=== PATIENT | female | born 1985 | race Caucasian/White ===

== ENCOUNTER 2019-08-26 17:54 | Emergency (ER) | payer OTHER ==
[~2019-08-26] VITALS: Ht 177.8 cm; Wt 75.9 kg
[~2019-08-26 17:54] MED LIST: ADDERALL 10 MG10 MG PO; CIPRO 250MG TA250 MG PO; FLOMAX0.4 MG PO; LEXAPRO10 MG PO; NORCO 325 MG-51 TAB PO; SPRINTEC 35 MCG1 TAB PO
[2019-08-26] MEDS ORDERED: ALPRAZOLAM0.5 MG PO (18:03)
[2019-08-26] MEDS ORDERED: BACLOFEN5 MG PO (18:03)
[2019-08-26 18:22] LABS: BASO # 0.1 (0.02-0.10); EOS # 0.1 (0.04-0.40); EOS % 1.3 % (1.0-5.0); HEMOGLOBIN 11.8 g/dL (12.5-16.0); LYMPH# 2.2 (1.50-4.00); MEAN CELL VOLUME 88 fl (78-100); MEAN CORPUSCULAR HEMOGLOBIN 27 pg (27-31); MEAN CORPUSCULAR HGB CONC 31 g/dL (33-37); MEAN PLATELET VOLUME 10.5 fl (7.4-10.4); MONO # 0.7 (0.20-0.80); NEU # 5.2 (1.40-6.50); PLATELET COUNT 254 K/mm3 (130-400); RED BLOOD COUNT 4.31 M/mm3 (4.10-5.30); RED CELL DISTRIBUTION WIDTH 13.9 % (11.5-14.5); WHITE BLOOD COUNT 8.4 K/mm3 (4.8-10.8)
[2019-08-26 18:29] LABS: ALBUMIN 3.7 g/dL (3.5-5.0)
[2019-08-26 18:30] LABS: POTASSIUM 3.6 mmol/L (3.5-5.1)
[2019-08-26 18:31] LABS: CALCIUM 9.1 mg/dL (8.3-10.5)
[2019-08-26 18:32] LABS: TOTAL PROTEIN 5.8 g/dL (6.4-8.3)
[2019-08-26 18:34] LABS: TOTAL BILIRUBIN 0.2 mg/dL (0.2-1.2)
[2019-08-26 18:41] LABS: LIPASE 15 U/L (8-78)
[2019-08-26 18:51] LABS: URINE APPEARANCE CLEAR; URINE BILIRUBIN NEGATIVE (NEGATIVE); URINE BLOOD NEGATIVE (NEGATIVE); URINE COLOR YELLOW; URINE GLUCOSE NEGATIVE (NEGATIVE); URINE KETONE NEGATIVE (NEGATIVE); URINE NITRATE NEGATIVE (NEGATIVE); URINE PROTEIN(semi-quant) TRACE mg/dL (NEGATIVE); URINE UROBILINOGEN NORMAL (NORMAL)
[2019-08-26 18:52] LABS: URINE LEUKOCYTE ESTERASE NEGATIVE (NEGATIVE); URINE WBC 0-1 /hpf (0-3)
[2019-08-26] MEDS ORDERED: NORCO 10-325 T1 EACH PO (21:53)
[2019-08-26] MEDS ORDERED: CYCLOBENZAPRINE10 M1 PO (21:53)
[2019-08-26 22:00] VITALS: BP 104/53
== END 2019-08-26 22:00 | disposition home or self-care (01) ==
LOC: ED 17:54
PROVIDERS: Nurse Practitioner
DX: M54.31 Sciatica, right side (principal); Z87.442 Personal history of urinary calculi
CPT/HCPCS: J1885; J2405; J3010; Q9967

== ENCOUNTER → 2019-09-03 | Outpatient (CLI) | payer OTHER ==
[2019-08-26 22:00] VITALS: BP 104/53
[~2019-09-03] MED LIST changes: +ALPRAZOLAM0.5 MG PO; +BACLOFEN5 MG PO; +CYCLOBENZAPRINE10 M1 PO; +NORCO 10-325 T1 EACH PO
== END ==
LOC: RAD 12:39
DX: M41.86 Other forms of scoliosis, lumbar region (principal)

== ENCOUNTER → 2019-12-17 | Outpatient (CLI) | payer OTHER | LOC: RAD 08:30 | DX: M51.36 Other intervertebral disc degeneration, lumbar region (principal); M47.816 Spondylosis without myelopathy or radiculopathy, lumbar region; M47.817 Spondylosis without myelopathy or radiculopathy, lumbosacral region ==

== ENCOUNTER → 2021-06-12 | Outpatient (CLI) | payer OTHER | LOC: LAB 14:28 | DX: U07.1 COVID-19 (principal) ==

== ENCOUNTER → 2022-02-15 | Outpatient (CLI) | payer OTHER ==
[2022-02-15 15:24] LABS: BASO # 0.05 K/mm3 (0.02-0.10); EOS # 0.15 K/mm3 (0.04-0.40); EOS % 2.4 % (1.0-5.0); HEMATOCRIT 38.8 % (37.0-47.0); HEMOGLOBIN 12.2 g/dL (12.5-16.0); LYMPH# 1.92 K/mm3 (1.50-4.00); MEAN CELL VOLUME 92 fl (78-100); MEAN CORPUSCULAR HEMOGLOBIN 29 pg (27-31); MEAN CORPUSCULAR HGB CONC 31 g/dL (33-37); MEAN PLATELET VOLUME 9.4 fl (7.4-10.4); MONO # 0.68 K/mm3 (0.20-0.80); NEU # 3.48 K/mm3 (1.40-6.50); PLATELET COUNT 249 K/mm3 (130-400); RED BLOOD COUNT 4.21 M/mm3 (4.10-5.30); RED CELL DISTRIBUTION WIDTH 13.3 % (11.5-14.5); WHITE BLOOD COUNT 6.3 K/mm3 (4.8-10.8)
[2022-02-15 15:33] LABS: POTASSIUM 4.9 mmol/L (3.5-5.1)
[2022-02-15 15:34] LABS: CALCIUM 9.6 mg/dL (8.3-10.5)
[2022-02-15 15:36] LABS: TOTAL PROTEIN 6.3 g/dL (6.4-8.3)
[2022-02-15 15:37] LABS: TOTAL BILIRUBIN 0.2 mg/dL (0.2-1.2)
== END ==
LOC: LAB 15:10
PROVIDERS: Family Medicine
DX: Z00.00 Encounter for general adult medical examination without abnormal findings (principal); G50.0 Trigeminal neuralgia; L03.90 Cellulitis, unspecified; F41.1 Generalized anxiety disorder; F90.0 Attention-deficit hyperactivity disorder, predominantly inattentive type; E03.9 Hypothyroidism, unspecified; E78.5 Hyperlipidemia, unspecified; Z72.0 Tobacco use; M25.512 Pain in left shoulder; G89.29 Other chronic pain

== ENCOUNTER → 2023-07-26 | Outpatient (CLI) | payer OTHER | LOC: RAD 12:11 | DX: M51.36 Other intervertebral disc degeneration, lumbar region (principal) ==

== ENCOUNTER → 2024-07-31 | Outpatient (CLI) | payer OTHER ==
[2024-07-31 18:45] LABS: BASO # 0.03 K/mm3 (0.02-0.10); EOS # 0.05 K/mm3 (0.04-0.40); HEMATOCRIT 36.4 % (37.0-47.0); HEMOGLOBIN 11.4 g/dL (12.5-16.0); LYMPH# 1.14 K/mm3 (1.50-4.00); MEAN CELL VOLUME 86 fl (78-100); MEAN CORPUSCULAR HEMOGLOBIN 27 pg (27-31); MEAN CORPUSCULAR HGB CONC 31 g/dL (33-37); MEAN PLATELET VOLUME 9.8 fl (7.4-10.4); NEU # 2.92 K/mm3 (1.40-6.50); PLATELET COUNT 258 K/mm3 (130-400); RED BLOOD COUNT 4.25 M/mm3 (4.10-5.30); RED CELL DISTRIBUTION WIDTH 15.5 % (11.5-14.5); WHITE BLOOD COUNT 4.9 K/mm3 (4.8-10.8)
[2024-07-31 18:53] LABS: SODIUM 139 mmol/L (136-145)
[2024-07-31 18:54] LABS: CALCIUM 9.1 mg/dL (8.3-10.5)
[2024-07-31 18:55] LABS: GLUCOSE 68 mg/dL (65-105); TOTAL PROTEIN 6.7 g/dL (6.4-8.3)
[2024-07-31 18:56] LABS: CARBON DIOXIDE 24 mmol/L (22-29)
[2024-07-31 19:01] LABS: AST-SGOT 22 U/L (5-34)
[2024-07-31 19:02] LABS: ALT/SGPT 22 U/L (0-55)
[2024-07-31 19:03] LABS: TOTAL BILIRUBIN < 0.1 mg/dL (0.2-1.2)
[2024-08-03 13:09] LABS: ADRENOCORTICOTROPIC HORMONE 6.7 pg/mL (7.2-63.3)
== END ==
LOC: LAB 18:34
PROVIDERS: Family Medicine
DX: I10 Essential (primary) hypertension (principal); E03.9 Hypothyroidism, unspecified; E27.9 Disorder of adrenal gland, unspecified